=== PATIENT | male | born 1970 | race Caucasian/White ===

== ENCOUNTER 2019-04-19 00:57 | Emergency (ER) | payer OTHER ==
[2019-04-19] MEDS ORDERED: cefTRIAXone 1 GM IVPB PREMIX 0 ML IV ONE (02:51)
== END 2019-04-19 01:30 | disposition left against medical advice (07) ==
LOC: SED 00:57
DX: Z53.21 Procedure and treatment not carried out due to patient leaving prior to being seen by health care provider (principal)
CPT/HCPCS: J0696